=== PATIENT | female | born 1960 | race Two or more races ===

== ENCOUNTER 2017-01-11 07:24 | Day surgery (SDC) | payer OTHER ==
[~2017-01-11 07:24] MED LIST: CLARITIN-D 241 EAC2 PO
== END 2017-01-11 12:45 ==
LOC: SRG 07:24 → SHSB 07:27 → ORE 09:55 → PACU 10:22 → SHSB 10:57
PROC: 0CBT8ZX Excision of Right Vocal Cord, Via Natural or Artificial Opening Endoscopic, Diagnostic (ICD-10-PCS; principal; 2017-01-11)
PROC: 0HBFXZZ Excision of Right Hand Skin, External Approach (ICD-10-PCS; 2017-01-11)
DX: J38.3 Other diseases of vocal cords (principal); F41.9 Anxiety disorder, unspecified; F32.9 Major depressive disorder, single episode, unspecified; F17.210 Nicotine dependence, cigarettes, uncomplicated; Z79.899 Other long term (current) drug therapy; Z90.49 Acquired absence of other specified parts of digestive tract; Z98.890 Other specified postprocedural states
CPT/HCPCS: J1170